=== PATIENT | female | born 1955 | race Caucasian/White ===

== ENCOUNTER 2019-11-21 09:19 | Emergency (ER) | payer BC ==
[2019-11-21 09:43] VITALS: BP 100/51
--- NOTE | 2019-11-21 10:22 | UC ---
Lower Extremity/Ankle HPI - HPI Summary HPI Summary: 2 DAYS OF PAIN IN THE RIGHT LATERAL FOOT. DENIES ANY ACUTE INJURY OR TRAUMA TO THE AREA. DENIES ANY INCREASE IN ACTIVITY. 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 PAIN IS WORSE WITH WEIGHTBEARING AND AMBULATION. HAS BEEN FLAT- FOOTED HER WHOLE LIFE. - History of Current Complaint Chief Complaint: UCLowerExtremity Stated Complaint: RT FOOT PAIN Time Seen by Provider: 11/21/19 10:02 Hx Obtained From: Patient Onset/Duration: Gradual Onset, Lasting Days, Still Present Severity Initially: Moderate Severity Currently: Moderate Pain Intensity: 7 Pain Scale Used: 0-10 Numeric Aggravating Factor(s): Standing Alleviating Factor(s): Rest, Elevation Able to Bear Weight: Yes - Allergies/Home Medications Allergies/Adverse Reactions: Allergies Allergy/AdvReac Type Severity Reaction Status Date / Time No Known Allergies Allergy Verified 11/21/19 09:35 Home Medications: Home Medications Cephalexin CAP* [Keflex 500 CAP*] 500 mg PO BID #14 cap 11/21/19 [Rx] PMH/Surg Hx/FS Hx/Imm Hx Previously Healthy: Yes - Surgical History Surgical History: Yes Surgery Procedure, Year, and Place: APPY, TUBAL LIGATION, HAND SURGERY - Family History Known Family History: Positive: Non-Contributory - Social History Alcohol Use: Occasionally Substance Use Type: None Smoking Status (MU): Heavy Every Day Tobacco Smoker Type: Cigarettes Amount Used/How Often: 1 PPD Length of Time of Smoking/Using Tobacco: 30 years Have You Smoked in the Last Year: Yes Household Exposure Type: Cigarettes - Immunization History Most Recent Influenza Vaccination: unk Most Recent Tetanus Shot: unk Most Recent Pneumonia Vaccination: never Review of Systems All Other Systems Reviewed And Are Negative: Yes Constitutional: Positive: Negative Skin: Positive: Other - redness right root Respiratory: Positive: Negative Cardiovascular: Positive: Negative Gastrointestinal: Positive: Negative Musculoskeletal: Positive: Arthralgia, Edema Physical Exam Triage Information Reviewed: Yes Appearance: Well-Appearing, No Pain Distress, Well-Nourished Vital Signs: Initial Vital Signs Temp 98.2 F 11/21/19 09:36 Pulse 96 11/21/19 09:36 Resp 18 11/21/19 09:36 BP 100/51 11/21/19 09:36 Pulse Ox 99 11/21/19 09:36 Vital Signs Reviewed: Yes Eyes: Positive: Conjunctiva Clear ENT: Positive: Hearing grossly normal Neck: Positive: Supple Respiratory: Positive: No respiratory distress, No accessory muscle use Cardiovascular: Positive: Pulses Normal Abdomen Description: Positive: Soft Musculoskeletal: Positive: ROM Intact, Edema @ - right lateral foot, Other: - TTP RIGHT LATERAL FOOT PROXIMALLY. NO ANKLE TENDERNESS. ACHILLES INTACT. FLAT FOOTED Neurological: Positive: Alert, Muscle Tone Normal Psychological: Positive: Age Appropriate Behavior Skin: Positive: Other - REDNESS, ERYTHEMA AND WARMTH RIGHT LATERAL FOOT PROXIMALLY. Diagnostics - Radiology RIGHT FOOT XRAYS Radiology Interpretation Completed By: Radiologist Summary of Radiographic Findings: OSTEOARTHRITIS. NO ACUTE OSSEOUS INJURY. Lower Extremity Course/Dx - Course Course Of Treatment: X-RAY TODAY NEGATIVE FOR ANY ACUTE INJURY. NO CLEAR BREAK IN THE SKIN HOWEVER GIVEN THE REDNESS, WARMTH AND SWELLING WILL GO AHEAD AND COVER FOR INFECTIOUS PROCESS WITH KEFLEX TWICE DAILY FOR A WEEK. ADVISED ORTHOPEDIC FOLLOW-UP NEXT WEEK IF HER SYMPTOMS ARE NOT IMPROVING. MICK WRAP FOR SOME COMPRESSION AND SUPPORT. ENCOURAGED REST, ICE, ELEVATION. - Differential Dx/Diagnosis Provider Diagnosis: Right foot pain Discharge ED - Sign-Out/Discharge Documenting (check all that apply): Patient Departure All imaging exams completed and their final reports reviewed: Yes - Discharge Plan Condition: Stable Disposition: HOME Prescriptions: Cephalexin CAP* [Keflex 500 CAP*] 500 mg PO BID #14 cap Patient Education Materials: Foot Contusion (ED), Flatfoot (DC) Referrals: Андрей Irvin MD [Medical Doctor] - 1 Week Richelle Mejias MD [Primary Care Provider] - If Needed Additional Instructions: UNCLEAR ETIOLOGY OF YOUR FOOT PAIN TODAY. X-RAYS NEGATIVE FOR ANY ACUTE BONY INJURY. MICK WRAP FOR SOME COMPRESSION AND SUPPORT. KEEP FOOT ELEVATED WHILE SEATED. GIVEN THE REDNESS, WARMTH AND SWELLING WILL GO AHEAD AND COVER WITH ANTIBIOTICS FOR POSSIBLE INFECTIOUS PROCESS. FOLLOW-UP WITH ORTHOPEDICS NEXT WEEK IF YOUR SYMPTOMS ARE NOT IMPROVING. YOU DO HAVE NOTICEABLY FLAT FEET. YOU MAY BENEFIT FORM ORTHOTICS. ORTHOPEDICS CAN ADDRESS THIS WELL. - Billing Disposition and Condition Condition: STABLE Disposition: Home
== END 2019-11-21 10:59 | disposition home or self-care (01) ==
LOC: UCEAST 09:19
DX: M25.571 Pain in right ankle and joints of right foot (principal); M19.071 Primary osteoarthritis, right ankle and foot; F17.210 Nicotine dependence, cigarettes, uncomplicated
CPT/HCPCS: 99212; G0463